=== PATIENT | male | born 1995 | race African-American/Black ===

== ENCOUNTER 2016-05-28 12:55 | Emergency (ER) | payer SELFPAY ==
[2016-05-28] MEDS ORDERED: OXYCODONE HCL 5 MG TABLET PO ONE (13:06)
[2016-05-28] MEDS ORDERED: SILVER SULFADIAZINE 1% CREAM 20 GM TUBE TOP ONE (13:06)
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
[2016-05-28 13:23] VITALS: BP 152/68; PULSE 108; TEMP 98.1; BMI 24.4
== END 2016-05-28 13:51 | disposition home or self-care (01) ==
LOC: EDMC 12:55
DX: T25.221A Burn of second degree of right foot, initial encounter (principal); T25.211A Burn of second degree of right ankle, initial encounter; T31.0 Burns involving less than 10% of body surface; X10.0XXA Contact with hot drinks, initial encounter
CPT/HCPCS: 99282; J3490